=== PATIENT | male | born 1985 | race Caucasian/White ===

== ENCOUNTER 2018-04-22 20:39 | Emergency (ER) | payer OTHER ==
[~2018-04-22] VITALS: Ht 170.2 cm; Wt 90.7 kg
[2018-04-23] MEDS ORDERED: IBUPROFEN800 MG PO (01:22)
== END 2018-04-23 04:15 | disposition home or self-care (01) ==
LOC: ER 20:39
DX: S30.0XXA Contusion of lower back and pelvis, initial encounter (principal); W18.39XA Other fall on same level, initial encounter; Y93.89 Activity, other specified; Y92.89 Other specified places as the place of occurrence of the external cause; Y99.8 Other external cause status